=== PATIENT | female | born 1990 | race Caucasian/White ===

== ENCOUNTER 2016-11-27 18:12 | Emergency (ER) | payer OTHER ==
[~2016-11-27] VITALS: Ht 160 cm; Wt 114.7 kg
[~2016-11-27 18:12] MED LIST: DELTASONE20 M1 PO; FOLBIC RF TABL1 EACH PO; MACROBID100 MG PO; MOTRIN800 MG PO; PRENATAL TABLE1 EAC3 PO; SYNTHROID75 MCG PO; ZOFRAN4 MG PO
[2016-11-27 19:12] VITALS: BP 136/84
== END 2016-11-27 19:13 | disposition home or self-care (01) ==
LOC: EME 18:12
DX: R13.10 Dysphagia, unspecified (principal); R47.9 Unspecified speech disturbances; Z87.891 Personal history of nicotine dependence
CPT/HCPCS: 99281; 99284